=== PATIENT | female | born 1945 | race Caucasian/White ===

== ENCOUNTER 2016-04-20 12:05 | Day surgery (SDC) | payer MEDICARE ==
[~2016-04-20] VITALS: Ht 170.2 cm; Wt 104.0 kg
[~2016-04-20 12:05] MED LIST: 0.9% Sodium Chloride 1,000 ML IV SCH; ASCO500C6 PO; ASPI81TA40 PO; CHOL10008 PO; CITA20TA11 PO; CRAN200C2 PO; DOCU250C2 PO; FLUT15.88 NS; HYDR25TA4 PO; KETO5DRO60 OP; METO50TA PO; NAPR220C16 PO; RANI150C4 PO; Sodium Chloride LOK Flush 10 mL Syringe IV PRN; fentaNYL-PF 50 mCg/mL 2 mL Inj IVPUSH PRN
[2016-04-20 12:36] VITALS: BP 129/60; PULSE 64; RESP 17; O2SAT 95
[2016-04-20] MEDS ORDERED: SOY1TABL2 PO (12:43)
[2016-04-20] MEDS ORDERED: FAMO20T PO (12:43)
[2016-04-20 13:37] VITALS: BP 111/66; PULSE 65; RESP 16; O2SAT 92
[2016-04-20 13:58] VITALS: BP 133/64; PULSE 67; RESP 16; O2SAT 93
[2016-04-20 14:08] VITALS: BP 133/64; PULSE 67; RESP 14; O2SAT 93
--- NOTE | 2016-04-20 14:27 | ENDO ---
[address] [address] ENDOSCOPY PROCEDURE PATIENT: TULIO CURTIS : 1945 MR#: [id number] ADMIT: 04/20/2016 JOB ID: [id number] PROCEDURE: Colonoscopy. INDICATION: Screening. ANESTHESIA: Patient's ASA classification is two. Mallampati score is two. MEDICATIONS: 1. Versed 5 mg. 2. Fentanyl 125 mcg. INSTRUMENT USED: PCF H 180 AL PREPARATION QUALITY: Good. PROCEDURE DETAILS: After informed consent was obtained, the patient was brought into the GI suite, where she was placed on oxygen via nasal cannula and monitored with continuous pulse oximeter, telemetry, and blood pressure monitoring. A time-out was performed, then she was placed in the left lateral decubitus position and medications were administered for sedation. Digital rectal exam was performed, which was unremarkable. The colonoscope was then inserted into the rectum and advanced under direct visualization to the cecum, which was identified by the presence of the ileocecal valve and appendiceal orifice. Once the cecum was reached, the colonoscope was withdrawn back into the rectum as the mucosa and lumen were examined. In the rectum, retroflexion was performed. Following retroflexion, the remaining air in the rectum was suctioned and the procedure was completed. FINDINGS: 1. Scattered diverticula were seen throughout the sigmoid colon. 2. Otherwise normal exam from rectum to cecum. IMPRESSION: Sigmoid diverticulosis. RECOMMENDATIONS: 1. Fiber-rich diet. 2. Repeat colonoscopy in 10 years, sooner if symptoms should dictate. COMPLICATIONS: None. ESTIMATED BLOOD LOSS: Zero.
== END 2016-04-20 23:59 | disposition home or self-care (01) ==
LOC: END 12:05
PROVIDERS: ATTEND Internal Medicine Gastroenterology
DX: Z12.11 Encounter for screening for malignant neoplasm of colon (principal); K57.30 Diverticulosis of large intestine without perforation or abscess without bleeding; I10 Essential (primary) hypertension; I25.10 Atherosclerotic heart disease of native coronary artery without angina pectoris
CPT/HCPCS: G0121; G0500; J2250; J3010; J7030